=== PATIENT | female | born 1965 | race Caucasian/White ===

== ENCOUNTER 2025-05-18 17:11 | Emergency (ER) | payer BC, SELFPAY ==
[2025-05-18 17:23] VITALS: BP 144/89
[2025-05-18 17:42] LABS: Hematocrit 38.6 % (37.0-47.0); Hemoglobin 13.2 g/dL (12.0-16.0); Mean Corp Hgb Conc. 34.2 g/dL (33.0-37.0); Mean Corpuscular Volume 94.6 fL (81.0-99.0); Nucleated Red Blood Cells % 0 %; Platelet Count 259 10^3/uL (130-400); Red Cell Dist. Width 12.4 % (11.5-14.5)
[2025-05-18 18:15] LABS: Troponin I < 0.012 ng/ml
[2025-05-18 18:16] LABS: ALT (SGPT) 23 U/L (0-35); AST (SGOT) 27 U/L (14-36); Albumin 4.5 g/dl (3.5-5.0); Alkaline Phosphatase 61 U/L (38-126); Blood Urea Nitrogen 17 mg/dl (7-17); Calcium 9.8 mg/dl (8.4-10.2); Carbon Dioxide 23 mmol/L (22-30); Chloride 110 mmol/L (98-107); Glucose 92 mg/dl (70-99); Lipase 159 U/L (23-300); Potassium 4.1 mmol/L (3.5-5.1); Sodium 140 mmol/L (135-145); Total Protein 6.9 g/dl (6.3-8.2); eGFR > 60.00
[2025-05-18 20:36] VITALS: BP 150/83
--- NOTE | 2025-05-18 20:59 | ED.GENMED ---
History of Present Illness
General
Chief Complaint: Dizziness
Source: patient
Time Seen by Provider: 05/18/25 20:50
History of Present Illness
History of Present Illness:
60-year-old female with past medical history of anxiety presenting the emergency department for evaluation for a multitude of concerns that been ongoing for the last 2 weeks including mild frontal and posterior headache described to be more like a
tension type headache, waxes and wanes accompanied with some mild lightheadedness and fatigue, shortness of breath but without any chest pain, palpitations or diaphoresis and upper abdominal discomfort. Patient states she is unsure if the symptoms
she is experiencing are all related. Went to her primary care provider at the onset of the symptoms and had blood work done with a questionably abnormal hemoglobin, has a follow-up visit scheduled for this coming Monday but states due to the
continued symptoms thought it would be best to come to the ER tonight to be further evaluated. She denies any history of similar. No changes to her medications. Social history and family history both noncontributory.
Past History
Past History
ED Past Medical History: Psychiatric
ED Past Surgical History:
Social History
Tobacco: Non-smoker
Alcohol: None
Drug: None
Living: with family
Review of Systems
Review of Systems
All Other Systems: ROS reviewed and negative except as documented in HPI and ROS
Phy Exam
Physical Exam
Physical Exam:
GENERAL: Alert , in no apparent distress
EYE: clear conjunctiva b/l
HEAD: NCAT
ENT: o/p clr, mmm.
CARDIAC: Regular rate and rhythm .
LUNGS: Clear breath sounds bilaterally, no acute respiratory distress, no wheezes/rales/rhonchi
ABDOMEN: Soft, without focal tenderness, no r/g, no cvat
NEUROLOGICAL: Alert and oriented
SKIN: Warm and dry, skin intact.
MUSCULOSKELETAL: No edema, well perfused.
PSYCH: Normal and appropriate interaction.
Scores
Heart Failure Risk
Heart Failure Risk Score: Not Applicable
Heart Score for Chest Pain Patients
STEMI patient?: Not applicable
Withdrawal Assessment of Alcohol
Withdrawal Assessment Completed?: Not applicable
Course
Orders/Labs/Results
Orders:
Orders
05/18/25 17:30
Electrocardiogram (*1) Urgent
Reason for Study: Shortness of Breath
CT Head W/o Iv Contrast Urgent
Comment:
Reason For Exam: word finding, headache, dizziness
05/18/25 17:31
EKG- Treatment ONCE
05/18/25 17:36
Complete Blood Count/With Diff Urgent
Comprehensive Metabolic Panel Urgent
Lipase Urgent
Troponin I Urgent
Abnormal Lab Results
05/18/25
17:36
RBC 4.08 L 10^6/uL
(4.20-5.40)
MCH 32.4 H pg
(27.0-31.0)
Chloride 110 H mmol/L
(98-107)
05/18/25 17:36
05/18/25 17:36
Vital Signs
Initial and Last Documented VS:
Initial Vital Signs
Temp Pulse Resp BP Pulse Ox
98.4 F 60 18 144/89 100
05/18/25 17:23 05/18/25 17:23 05/18/25 17:23 05/18/25 17:23 05/18/25 17:23
Last Documented Vital Signs
Temp Pulse Resp BP Pulse Ox
98.4 F 53 17 140/85 100
05/18/25 17:23 05/18/25 20:58 05/18/25 20:58 05/18/25 21:11 05/18/25 21:00
MDM/Problems Addressed
Differential Diagnosis Includes:
Tension headache
Migraine headache
GERD
Gastritis
PUD
ACS
Hypertension/hypertensive urgency
Lyme or other tick borne illness (patient was tested for this on her outpatient labs and these were negative)
Medication side effects
Post menopause
Electrolyte abnormality
Thyroid dysfunction (normal thyroid tests on labs)
MDM/Problems Addressed:
60-year-old female presenting to the ER for evaluation of a multitude of nonspecific symptoms that been ongoing for the last 2 weeks. Workup here unremarkable, patient hemodynamically stable and overall well-appearing. Patient has follow-up
already scheduled with her primary care provider this coming Monday which I do think is reasonable for her to continue this workup as an outpatient. She was provided with lab work and CT imaging reports. Aware of return precautions. Stable for
discharge. We did discuss that while we are overall unsure of the exact etiology of her symptoms we did not feel there was any emergent pathologies present.
*Radiology
Radiology exam reviewed: radiology read reviewed
*Pulse Oximetry
SaO2: 100
Oxygen Mode of Delivery: Room air
Patient hypoxic: no
*EKG
Heart Rate: 50
Rate: bradycardiac
Rhythm: sinus
[place]: normal axis
Ischemia: no ischemia
*Communication Professor Interpretation
Rate: normal
Heart Rate: 55
Rhythm: sinus
*Critical Care Note
Total Time (30-74mins, 75-104mins- exclusive of procedures): Not Applicable
ED Attending Note
-
Portions of this chart may have been created with voice recognition software.� Occasional wrong word or��sound alike� substitutions may have occurred due to the inherent limitations of voice recognition software.
Discharge Plan
Departure
Patient Disposition: Home (Routine Discharge)
Date of Disposition: 05/18/25
Time of Disposition: 20:59
Patient with high blood pressure during this ER visit?: Yes
Discharge Problem:
Headache, Episodic lightheadedness, Shortness of breath
Instructions: Headache, Adult (DC)
Referrals:
Harriet Lerma MD [Family Provider]
Interventions
Interventions:
*Risk Screen - Suicide Last Done: 05/18/25 17:23
*General Assessment Last Done: 05/18/25 17:23
*Neglect/Abuse Screening Last Done: 05/18/25 17:23
*ED- Fall Risk Assessment Last Done: 05/18/25 20:26
*ED COVID-19 Vaccine History Last Done: 05/18/25 17:23
*Nursing Disposition Last Done: 05/18/25 21:20
ED- Neurological Assessment Last Done: 05/18/25 20:26
ED- Cardiac Assessment Last Done: 05/18/25 20:30
ED Swallowing Screen Last Done: 05/18/25 20:26
Discharge Date and Time
Discharge Date/Time: 05/18/25 21:20
Print Language: LATVIAN
[2025-05-18 21:00] VITALS: BMI 25.0
[2025-05-18 21:11] VITALS: BP 140/85
== END 2025-05-18 21:20 | disposition home or self-care (01) ==
LOC: EMR 17:11
PROVIDERS: Emergency Medicine; EMERGENCY PHYSICIAN Student in an Organized Health Care Education/Training Program; FAMILY PHYSICIAN Internal Medicine
DX: R51.9 Headache, unspecified (principal); R42 Dizziness and giddiness; R06.02 Shortness of breath
CPT/HCPCS: 99284; 70450; 80053; 83690; 84484; 85025; 93005